=== PATIENT | female | born 1955 | race Hispanic/Latino ===

== ENCOUNTER 2017-03-25 11:49 | Outpatient (CLI) | payer OTHER ==
--- NOTE | 2017-03-25 13:58 | Mammography Report ---
BILATERAL MAMMOGRAM: FINDINGS: The breast tissue is heterogeneously dense, which could obscure detection of small masses (approximately 50%-75% glandular). No mass, distortion, suspicious calcification, or skin change is seen. There are no significant changes compared to prior examination in February 2015. CAD was utilized. IMPRESSION: Negative mammogram. There is no mammographic evidence of malignancy. RECOMMENDATION: Follow-up per ACS guidelines. BI-RADS CATEGORY: 1 = Negative ACR BI-RADS MAMMOGRAPHIC CODES: 0 = Needs additional imaging evaluation; 1 = Negative; 2 = Benign; 3 = Probably benign; 4 = Suspicious; 5 = Malignant; 6 = Known biopsy-proven malignancy COMMENT: 1. Dense breast tissue, i.e., adenosis, fibrocystic changes, etc., may obscure an underlying neoplasm. 2. Approximately 10% of cancers are not detected with mammography. 3. A negative mammography report should not delay biopsy if a clinically suspicious mass is present. COMMENT: Patient follow-up letters are generated in [employer].
== END 2017-03-25 11:50 | disposition home or self-care (01) ==
LOC: SPVWC 11:49
PROVIDERS: ATTEND Family Medicine
DX: Z12.31 Encounter for screening mammogram for malignant neoplasm of breast (principal)
CPT/HCPCS: 77067; G0202

== ENCOUNTER 2019-02-27 09:36 | Outpatient (CLI) | payer OTHER ==
--- NOTE | 2019-02-27 14:20 | Mammography Report ---
DIGITAL SCREENING MAMMOGRAM WITH CAD, 02/27/2019 INDICATION: Routine screening mammography. TECHNIQUE: Digital bilateral 2D mammography was obtained in the craniocaudal and mediolateral obliq ue projections. This examination was interpreted with the benefit of Computer-Aided Detection analysi s. COMPARISON: 04/21/2018 and mammograms going back to 12/15/2012 FINDINGS: Breast Density: The breasts are heterogeneously dense, which may obscure small masses. There is no evidence of dominant mass, suspicious calcifications or architectural distortion in eithe r breast. IMPRESSION: No mammographic evidence of malignancy. Follow up recommendation: Routine yearly BI-RADS Category 2: Benign. A "normal" or negative report should not discourage follow up or biopsy of a clinically significant f inding. A written summary of these findings will be mailed to the patient. The patient will be entered into a mammography reporting system which will generate a reminder letter for the patient's next appointmen t at the appropriate interval. The [employer] recommends yearly mammograms starting at age 40 and continuing as l christine as a woman is in good health. Breast MRI is recommended for women with an approximate 20-25% or greater lifetime risk of breast cancer, including women with a strong family history of breast or ova fozia cancer or who have been treated for Hodgkin's disease. Signer Name: Haja Hernandez MD Signed: 02/27/2019 2:15 PM Workstation Name: [id number]
== END 2019-02-27 09:37 | disposition home or self-care (01) ==
LOC: SPVWC 09:36
PROVIDERS: ATTEND Family Medicine
DX: Z12.31 Encounter for screening mammogram for malignant neoplasm of breast (principal)
CPT/HCPCS: 77067

== ENCOUNTER 2020-03-01 10:41 | Outpatient (CLI) | payer OTHER ==
--- NOTE | 2020-03-02 08:10 | Mammography Report ---
BILATERAL DIGITAL SCREENING MAMMOGRAM WITH CAD HISTORY: SCREENING MAMMO TECHNIQUE: Routine digital mammographic imaging performed. This examination was interpreted with john schroeder benefit of Computer-aided Detection analysis. COMPARISON: 02/27/2019, 03/31/2018, 03/25/2017, 03/09/2016, 02/18/2015. FINDINGS: Breast Density: heterogeneously dense breast parenchymal pattern which somewhat lessens the sensitivi ty of the evaluation. Digital CC and MLO views demonstrate two adjacent focal asymmetries within the left lower inner breas t at middle and posterior depth. Additionally, there is a right subareolar breast asymmetry which is seen on the MLO view only. IMPRESSION: Two adjacent focal asymmetries with a left lower inner breast at middle and posterior depth. Right subareolar breast asymmetry seen on MLO view only. Additional mammographic views and possible ultrasound of the above findings is recommended. BIRADS 0-Incomplete: Needs additional imaging evaluation NOTE: WE WILL RECALL THE PATIENT FOR THIS ADDITIONAL EVALUATION. FURTHER INFORMATION: According to the [employer], yearly mammograms are recommend ed starting at age 40 and continuing as long as a woman is in good health. Clinical Breast Exams shou ld be part of a periodic health exam-about every 3 years for women in their 20s and 30s and every yea r for women 40 and over. Breast self exam is an option for women starting in their 20s. Any breast ch marty noted on a breast self exam should be reported promptly to the patient's healthcare provider. Br east MRI is recommended for women with an approximately 20-25% or greater lifetime risk of breast can cer, including women with a strong family history of breast or ovarian cancer and women who have been treated for Hodgkin's disease. A negative Mammography report should not discourage follow up or biopsy of a clinically significant f inding and/or abnormality. Dense breast tissue may obscure small neoplasms. The patient will be entered into a reminder system with a target due date for the next screening mamm ogram. Signer Name: Stephen Melendez MD Signed: 03/02/2020 8:06 AM Workstation Name: [id number]
== END 2020-03-01 10:42 | disposition home or self-care (01) ==
LOC: SPVWC 10:41
PROVIDERS: ATTEND Family Medicine
DX: Z12.31 Encounter for screening mammogram for malignant neoplasm of breast (principal)
CPT/HCPCS: 77067

== ENCOUNTER 2020-04-26 15:02 | Outpatient (CLI) | payer OTHER ==
--- NOTE | 2020-04-26 17:00 | Ultrasound Report ---
BILATERAL DIGITAL DIAGNOSTIC MAMMOGRAM WITH CAD , 04/26/2020 BILATERAL LIMITED BREAST ULTRASOUND CLINICAL INFORMATION / INDICATION: Follow up abnormal screening mammogram bilaterally TECHNIQUE: Digital bilateral mammographic imaging was performed. Spot compression views were obtained . Limited ultrasound was performed. This examination was interpreted with the benefit of Computer-Aid ed Detection (CAD) analysis. COMPARISON: 02/27/2019, 03/01/2020 FINDINGS: Breast Density: The breasts are heterogeneously dense, which may obscure small masses. MAMMOGRAPHIC FINDINGS: There is a small round density projecting in the lower inner quadrant of the r ight breast. There are 2 focal asymmetries in the medial left breast confirmed with spot compression imaging. Ther e appear to be connected by a soft tissue bridge. ULTRASOUND FINDINGS: Targeted ultrasound evaluation was performed of the area of interest. Left breast: There are no sonographic correlates for the mammographic asymmetries in the medial left breast at approximately 9:00. The 2 focal asymmetries are suspicious for malignancy and further evalu ation with biopsy should be obtained. Right breast: There is a 4 mm small cyst in the 4:00 position of the right breast 5 cm from the nippl e. This correlates proximally with mammographic benign appearing finding and no further evaluation of the right breast is required. IMPRESSION: 1. No evidence of malignancy within the right breast. The right breast needs no further evaluation at this time. 2. Two adjacent focal asymmetries in the left medial breast at approximately 9:00 are worrisome for m alignancy. The entire area involved measures approximately 3 cm. Unfortunately there was no sonograph ic correlate identified for potential ultrasound-guided biopsy. However I do believe that asymmetries may be amenable to stereotactic guided biopsy. Follow up recommendation: Biopsy BI-RADS Category 4: Suspicious for Malignancy. A "normal" or negative report should not discourage follow up or biopsy of a clinically significant f inding. A written summary of these findings will be mailed to the patient. The patient will be entered into a mammography reporting system which will generate a reminder letter for the patient's next appointmen t at the appropriate interval. According to the [employer], yearly mammograms are recommended starting at age 40 and continuing as long as a woman is in good health. Breast MRI is recommended for women with an breonna roximately 20-25% or greater lifetime risk of breast cancer, including women with a strong family his tory of breast or ovarian cancer and women who have been treated for Hodgkin's disease. Signer Name: Cait Fernando MD Signed: 04/26/2020 4:55 PM Workstation Name: [id number]
== END 2020-04-26 15:03 | disposition home or self-care (01) ==
LOC: MAMMO 15:02
PROVIDERS: ATTEND Family Medicine
DX: N60.01 Solitary cyst of right breast (principal); N64.89 Other specified disorders of breast
CPT/HCPCS: 77066

== ENCOUNTER 2020-06-01 08:48 | Outpatient (CLI) | payer OTHER ==
--- NOTE | 2020-06-02 13:50 | Mammography Report ---
STEREOTACTIC GUIDED LEFT BREAST BIOPSY, 06/01/2020 CLINICAL INFORMATION / INDICATION: Suspicious left breast asymmetries. COMPARISON: Diagnostic bilateral mammogram and breast ultrasound from 04/26/2020. PROCEDURE: Risks, benefits, and indications to the procedure were discussed with the patient in detail, includin g bleeding, infection, hematoma formation, and inadequate tissue sampling. The patient agreed to proc eed with both verbal and written consent. A timeout procedure was performed with 2 patient identifier s. The patient was placed in the prone position on the biopsy table. Targeted stereotactic images were o btained of the area of interest. The targeted area was identified and coordinates were determined. Th e breast was cleansed and prepped in the usual sterile fashion. Lidocaine 1% with and without epineph rine was used for local anesthesia. An 8 gauge Mammotome device was inserted into the breast. However , a safe stroke margin could not be achieved for biopsy. The biopsy device was removed. Hemostasis w as achieved with manual pressure. A sterile pressure dressing was applied to the skin. The patient tolerated the procedure without difficulty. No complications were encountered. Postbiopsy instructions were discussed with the patient and given in writing. IMPRESSION: Unsuccessful stereotactic guided left breast biopsy. A breast MRI would be helpful for further evalua tion. Alternatively, wire localization of the asymmetries and surgical excision may be performed. Signer Name: Tejinder Moss MD Signed: 06/02/2020 1:46 PM Workstation Name: [id number]
== END 2020-06-01 08:49 | disposition home or self-care (01) ==
LOC: SPVWC 08:48
PROVIDERS: ATTEND Family Medicine
DX: R92.1 Mammographic calcification found on diagnostic imaging of breast (principal); N64.89 Other specified disorders of breast; R92.8 Other abnormal and inconclusive findings on diagnostic imaging of breast

== ENCOUNTER 2020-06-22 10:33 | Outpatient (CLI) | payer OTHER ==
--- NOTE | 2020-06-22 13:29 | Magnetic Resonance Report ---
BILATERAL BREAST MRI WITH AND WITHOUT CONTRAST CLINICAL INFORMATION/INDICATION: The patient has a history of abnormal mammogram manifested by two ir regular asymmetries in the medial left breast. Stereotactic guided biopsy was attempted but target c oordinates did not permit a successful biopsy. No sonographic target could be identified. She present s today for additional evaluation. TECHNICAL: Axial T1 and T2-weighted fat sat images were obtained precontrast. Gadolinium-based contra st was injected intravenously and serial axial T1 weighted images with fat saturation were obtained. 3-D MIP projections, kinetic analysis and subtraction imaging was utilized to evaluate. A dedicated 8 -channel breast coil was used for image acquisition. COMPARISON: Diagnostic mammogram and ultrasound, 04/26/2020 FINDINGS: There is low level background enhancement within both breasts. Right breast: No dominant mass or suspicious area of enhancement is seen in the right breast. Left breast: There are two irregular enhancing masses within the left breast at the 4:00 position pos terior depth, measuring approximately 1.4 x 0.7 and 1.5 x 0.5. There is a bridging area of enhancemen t between the two masses. Collectively, the abnormality measures 3.5 cm in AP dimension by 0.9 cm tra nsverse by 1.0 cm. This corresponds to the abnormality seen on the mammogram. No additional separate suspicious area of enhancement is seen in the left breast. Axilla: No pathologically enlarged axillary lymph nodes are identified. Additional findings: Limited imaging of the thorax and upper abdomen demonstrates no focal abnormalit y. IMPRESSION: 1. Two adjacent enhancing masses in the medial left breast as described which are highly suggestive f or neoplasm. Needle localization and surgical biopsy may be necessary considering that stereotactic g uided biopsy was unsuccessful and there is no sonographic correlate to these lesions. 2. No MRI abnormality of the right breast. Follow up recommendation: Surgical consult BI-RADS Category 5: Highly Suggestive of Malignancy. Signer Name: Simi Cochran MD Signed: 06/22/2020 1:24 PM Workstation Name: [id number]
== END 2020-06-22 10:34 | disposition home or self-care (01) ==
LOC: SPVIMAG 10:33
PROVIDERS: ATTEND Family Medicine
DX: N63.42 Unspecified lump in left breast, subareolar (principal)
CPT/HCPCS: A9577; C8908; 77049